=== PATIENT | male | born 1985 | race Two or more races ===

== ENCOUNTER 2018-08-13 20:53 | Emergency (ER) | payer OTHER ==
[~2018-08-13] VITALS: Ht 172.7 cm; Wt 72.6 kg
[2018-08-13 21:03] VITALS: BP 129/80
[2018-08-13] MEDS ORDERED: CEFTRIAXONE 500 MG VIAL IM ONE (21:30)
[2018-08-13] MEDS ORDERED: AZITHROMYCIN 250 MG TABLET PO ONE (21:30)
[2018-08-13] MEDS ORDERED: CEFTRIAXONE 500 MG VIAL ONE (21:46)
[2018-08-13] MEDS ORDERED: AZITHROMYCIN 250 MG TABLET ONE (21:46)
[2018-08-13] MEDS ORDERED: LIDOCAINE /MPF 1% VIAL 5 ML VIAL ONE (21:46)
== END 2018-08-13 21:55 | disposition home or self-care (01) ==
LOC: ER 21:00
DX: A74.9 Chlamydial infection, unspecified (principal); A54.9 Gonococcal infection, unspecified
CPT/HCPCS: A4606; J0696; J3490; Z7610